=== PATIENT | female | born 1990 | race Caucasian/White ===

== ENCOUNTER 2023-04-08 22:58 | Emergency (ER) | payer BC ==
[~2023-04-08] VITALS: Ht 170.2 cm; Wt 81.6 kg
[2023-04-08] MEDS ORDERED: KETOROLAC TROMETHAMINE 30 MG INJ IVP ONE (23:30)
[2023-04-08] MEDS ORDERED: diphenhydrAMINE 50 MG/1 ML VIAL IV ONE (23:30)
[2023-04-08] MEDS ORDERED: METOCLOPRAMIDE HCL 10 MG/2 ML VIAL IV ONE (23:30)
[2023-04-08] MEDS ORDERED: IV NS 1000 ML 1,000 ML IV ONE (23:30)
[2023-04-08 23:45] LABS: HEMATOCRIT 39.5 % (31.2-41.9); MEAN CORPUSCULAR HEMOGLOBIN 27.3 uug (24.7-32.8); MEAN CORPUSCULAR VOLUME 82.2 fL (75.5-95.3); PLATELET COUNT (AUTO) 311 K/uL (179-408)
[2023-04-08 23:58] LABS: CREATININE 0.6 mg/dL (0.6-1.3); MAGNESIUM 1.9 mg/dL (1.8-2.4); POTASSIUM 3.8 mmol/L (3.5-5.1)
[2023-04-09] MEDS ORDERED: diphenhydrAMINE 50 MG/1 ML VIAL ONE (00:06)
[2023-04-09] MEDS ORDERED: METOCLOPRAMIDE HCL 10 MG/2 ML VIAL ONE (00:07)
[2023-04-09] MEDS ORDERED: KETOROLAC TROMETHAMINE 30 MG INJ ONE (00:07)
[2023-04-09] MEDS ORDERED: NAPR-1009 PO (00:22)
[2023-04-09] MEDS ORDERED: DIPH25CA83 PO (00:22)
[2023-04-09] MEDS ORDERED: METO-295 PO (00:22)
[2023-04-09 02:29] VITALS: BP 119/69
== END 2023-04-09 01:35 | disposition home or self-care (01) ==
LOC: ER 23:03
DX: G43.909 Migraine, unspecified, not intractable, without status migrainosus (principal); Z88.0 Allergy status to penicillin; Z88.1 Allergy status to other antibiotic agents; Z79.899 Other long term (current) drug therapy
CPT/HCPCS: 36415; 83735; 85025; A4663; J1200; J1885; J2765; J7040; J8597